=== PATIENT | female | born 1990 | race Caucasian/White ===

== ENCOUNTER 2018-09-08 22:59 | Emergency (ER) | payer BC, OTHER ==
[~2018-09-08] VITALS: Wt 55.2 kg
[~2018-09-08 22:59] MED LIST: PREN1TAB49
--- NOTE | 2018-09-09 00:59 | ERD ---
ER Documentation Chief Complaint Chief Complaint BACK PAIN, 12 WEEKS PG, DX DEMISE HPI 22-year-old G3, P2 female and her 12-week of presents with complaint of abdominal cramping. States that she was at [facility] on Thursday and was diagnosed with demise. States that she has not passed the fetus yet. States there has been some mild spotting but she is not going through any pads. States that she has an OB by the name of Dr.Michael Ann. Denies any lightheadedness, palpitations, fevers, chills. ROS All systems reviewed and are negative except as per history of present illness. Medications Home Meds Active Scripts Ibuprofen* (Motrin*) 600 Mg Tab, 600 MG PO Q6 for pain, #30 TAB Prov:ISIAH GREENE 09/09/18 Hydrocodone/Acetaminophen (Electra 5-325 Tablet) 1 Each Tablet, 1 TAB PO Q6H PRN for PAIN, #15 TAB Prov:ISIAH GREENE 09/09/18 Reported Medications Vits W-Ca,Fe,Fa(<1MG) () 1 Tab Tablet 01/29/10 Allergies Allergies: Coded Allergies: No Known Allergies (Verified Allergy, Mild, 01/29/10) PMhx/Soc Medical and Surgical Hx: pt denies Medical Hx, pt denies Surgical Hx History of Surgery: No Anesthesia Reaction: No Hx Neurological Disorder: No Hx Respiratory Disorders: No Hx Cardiac Disorders: No Hx Psychiatric Problems: No Hx Miscellaneous Medical Probl: No Hx Alcohol Use: No Hx Substance Use: No Hx Tobacco Use: No Smoking Status: Never smoker FmHx Family History: No diabetes, No coronary disease, No other Physical Exam Vitals Vital Signs Date Temp Pulse Resp B/P (MAP) Pulse Ox O2 O2 Flow FiO2 Time Delivery Rate 09/08/18 97.6 82 18 115/63 99 23:02 (80) Physical Exam Const: No acute distress Head: Atraumatic Eyes: Normal Conjunctiva ENT: Normal External Ears, Nose and Mouth. Neck: Full range of motion. No meningismus. Resp: Clear to auscultation bilaterally Cardio: Regular rate and rhythm, no murmurs Abd: Soft, non tender, non distended. Normal bowel sounds Skin: No petechiae or rashes Back: No midline or flank tenderness Ext: No cyanosis, or edema Neur: Awake and alert Psych: Normal Mood and Affect Results 24 hrs Laboratory Tests Test 09/09/18 02:39 Prothrombin Time 13.3 Sec Prothrombin Time Ratio 1.0 INR International Normalized Ratio 1.00 Activated Partial Thromboplast Time 29.9 Sec Fibrinogen 285.0 mg/dl Current Medications Medications Dose Sig/[place] Start Time Status Last (Trade) Ordered Route PRN Stop Time Admin Dose Reason Admin Ketorolac 60 mg ONCE STAT 09/09/18 DC 09/09/18 Tromethamine IM 02:13 09/09/18 02:42 (Toradol) 02:15 1 tab ONCE ONCE 09/09/18 DC 09/09/18 Acetaminophen PO 02:30 09/09/18 02:41 / 02:31 Hydrocodone Bitart (Electra ()) Procedures/[facility] DIAGNOSTIC IMAGING REPORT Patient: RADHA SALGUERO : 1990 Age: 27 Sex: F MR #: [id number] DOS: 09/09/18 0052 Ordering MD: ISIAH GREENE Location: [facility] Room/Bed: PROCEDURE: US OB. CLINICAL INDICATION: Confirm demise, cramping and spotting. Patient reports being seen at [facility] 3 days ago and being told of demise. Clinical estimated gestational age 13 weeks 1 day. TECHNIQUE: Transabdominal views of the pelvis are available for review. COMPARISON: No prior studies are available for comparison. FINDINGS: [place]-rump length: 2.38 cm heart rate: No embryonic heart activity seen. Ultrasound estimated gestational age: 9 weeks 1 day Neither ovary seen. No adnexal mass or free intrapelvic fluid is seen IMPRESSION: Failed intrauterine / demise. RPTAT: HJES .Zeus Malin MD, MD Date Time Electronically viewed and signed by .Zeus Malin MD, MD on 09/09/2018 02:04 .S/ CC: ISIAH GREENE [phone] MDM: Ultrasound performed confirmed demise. I spoke to Dr. Segura, the ASSISTANT STORE MANAGER TRAINEE contract administration manager, and she stated that as long as patient coagulation studies and fibrinogen come back within normal limits she can follow-up with her ASSISTANT STORE MANAGER TRAINEE tomorrow. I explained this to the patient and patient agreed to follow-up with her ASSISTANT STORE MANAGER TRAINEE tomorrow. I have low suspicion for ectopic baseson results of US, hemodynamic stability, physical exam and patient history. I have low suspicion for septic , pyelonephritis, placenta abrupta, appendicitis, cholecystitis, bowel obstruction, ovarian torsion, symptomatic anema, PID, surgical abdomen, or other life threatening conditions based on patient history, physical exam, and lab/imaging results. Patient discharged with strict ER precautions. Patient advised to follow up with PMD and product manager e commerce. All questions answered at discharge. Departure Diagnosis: Primary Impression: demise Condition: Stable ISIAH GREENE September 09, 2018 00:59
[2018-09-09] MEDS ORDERED: KETOROLAC 60 MG INJ IM STA (02:13)
[2018-09-09] MEDS ORDERED: HYDROCODONE/APAP (5/325) TAB PO ONE (02:30)
[2018-09-09] MEDS ORDERED: HYDR-4011 PO (03:24)
[2018-09-09] MEDS ORDERED: IBUP-1542 PO (03:24)
[2018-09-09 03:35] VITALS: BP 91/50; PULSE 64; RESP 18
== END 2018-09-09 03:36 | disposition home or self-care (01) ==
LOC: FTE 22:59
DX: O02.1 Missed abortion (principal)
CPT/HCPCS: 36415; 76801; 85384; 85610; 85730; 86900; 86901; 96372; J1885; Z7502; Z7610

== ENCOUNTER 2018-09-14 15:38 | Day surgery (SDC) | payer OTHER ==
[~2018-09-14] VITALS: Ht 162.6 cm; Wt 54.0 kg
[2018-09-14] VITALS (10 sets, daily range): BP systolic 112–131; BP diastolic 70–81; PULSE 68–80; RESP 11–16; Ht 162.6 cm; Wt 54.0 kg
--- NOTE | 2018-09-14 15:23 | PREOPHP ---
DATE OF ADMISSION: 09/14/2018 HISTORY OF PRESENT ILLNESS: Ms. Charlene Butler is a 27-year-old 4, para 2, LMP of 019, diagnosed with missed approximately 9 weeks gestational age, desires surgical managemen t. PAST MEDICAL HISTORY: None. MEDICATIONS: None. PAST SURGICAL HISTORY: None. OBSTETRICAL HISTORY: x2 vaginal delivery, x1 missed AB. GYNECOLOGIC HISTORY: 12, regular 3 to 4 days. Denies any sexually transmitted infections. Sexually active with 1 partner. SOCIAL HISTORY: Denies any smoking, drugs or alcohol. FAMILY HISTORY: None. REVIEW OF SYSTEMS: All within normal except history of present illness. PHYSICAL EXAMINATION: HEENT: Within normal. LUNGS: CTA bilateral. CARDIOVASCULAR: S1, S2. Regular rate, rhythm. ABDOMEN: Soft, nontender, negative distention. EXTREMITIES: Negative edema. No calf tenderness. VAGINAL: Normal external genitalia. Cervix negative, CMT negative lesions. Adnexa: Negative mass, nontender bilateral. Fundus is 8-week size uterus. ASSESSMENT: 1. Missed approximately 9 weeks' gestational age. 2. Rh positive. 3. Desires surgical management. PLAN: Consent for suction D and C. Risks, benefits and alternatives were explained. All questions were answered. Dictated By: DARIUS ESCALERA/ALFONSO Conf#: [id number] DID#: [id number]
[~2018-09-14 15:38] MED LIST changes: +HYDR-4011 PO; +IBUP-1542 PO
[2018-09-14] MEDS ORDERED: SEVOFLURANE 15 MIN ONE (17:00)
--- NOTE | 2018-09-14 17:24 | PREAC ---
Date/Time of Note Date/Time of Note DATE: 09/14/18 TIME: 17:22 Anesthesia Eval and Record Evaluation Time Pre-Procedure Interview DATE: 09/14/18 TIME: 17:22 Age 27 Sex female NPO: 8 hrs Preoperative diagnosis missed Planned procedure D&C Past Medical History Past Medical History: None Surgery & Anesthesia Issues No known issue Meds Anticoagulation: No Beta Fiona within 24 hr: No Reason Beta Fiona not given: Pt. not on B-Fiona Active Scripts Ibuprofen* (Motrin*) 600 Mg Tab, 600 MG PO Q6 for pain, #30 TAB Prov:ISIAH GREENE 09/09/18 Hydrocodone/Acetaminophen ([place] 5-325 Tablet) 1 Each Tablet, 1 TAB PO Q6H PRN for PAIN, #15 TAB Prov:ISIAH GREENE 09/09/18 Reported Medications Vits W-Ca,Fe,Fa(<1MG) () 1 Tab Tablet 01/29/10 Meds reviewed: Yes Allergies Coded Allergies: No Known Allergies (Verified Allergy, Mild, 01/29/10) Allergies Reviewed: Yes Labs/Studies Labs Reviewed: Reviewed by anesthesiologist Result Diagram: 09/14/18 1608 Laboratory Tests 09/14/18 16:08 Blood Bank Test 09/14/18 16:08 Antibody Screen NEGATIVE Blood Type B POSITIVE test: Positive Studies: ECG Pre-procedure Exam Last vitals Vital Signs Date Temp Pulse Resp B/P (MAP) Pulse Ox O2 O2 Flow FiO2 Time Delivery Rate 09/14/18 97.4 74 16 126/75 99 Room Air 16:25 (92) Airway: Adequate mouth opening, Adequate thyromental dist Mallampati: Mallampati II Teeth: Normal Lung: Normal Heart: Normal ASA Physical Status ASA physical status: 2 Emergency: None Planned Anesthetic General/MAC: LMA Planned Pain Management Parenteral pain med Pre-operative Attestations Prior to commencing anesthesia and surgery, the patient was re-evaluated, there was verification of: *The patient's identity *The results of appropriate recent lab work and preoperative vital signs *The above evaluation not changing prior to induction *Anesthetic plan, risk benefits, alternative and complications discussed with patient/family; questions answered; patient/family understands, accepts and wishes to proceed. GUNNAR CHAPMAN MD September 14, 2018 17:24
[2018-09-14] MEDS ORDERED: FENTAnyl 50 MCG/ML VIAL ONE (17:26)
[2018-09-14] MEDS ORDERED: MIDAZOLAM 1 MG/ML 2 ML INJ ONE (17:26)
[2018-09-14] MEDS ORDERED: METHYLERGONOVINE 0.2 MG INJ ONE (17:40)
[2018-09-14] MEDS ORDERED: ONDANSETRON 4 MG INJ ONE (17:47)
[2018-09-14] MEDS ORDERED: PROPOFOL 20 ML ONE (17:48)
[2018-09-14] MEDS ORDERED: CEFAZOLIN 1 GM INJ ONE (17:48)
[2018-09-14] MEDS ORDERED: LIDOCAINE 2% (SDV) 5 ML INJ ONE (17:48)
--- NOTE | 2018-09-14 18:04 | PAC ---
Date/Time of Note Date/Time of Note DATE: 09/14/18 TIME: 18:03 Post-Anesthesia Notes Post-Anesthesia Note Last documented vital signs Vital Signs Date Temp Pulse Resp B/P (MAP) Pulse Ox O2 O2 Flow FiO2 Time Delivery Rate 09/14/18 97.4 74 16 126/75 99 Room Air 16:25 (92) Activity: WNL Respiratory function: WNL Cardiovascular function: WNL Mental status: Baseline Pain reasonably controlled: Yes Hydration appropriate: Yes Nausea/Vomiting absent: Yes Comments BP:105/56, P:77, Spo2:100%, T:98,8 GUNNAR CHAPMAN MD September 14, 2018 18:04
--- NOTE | 2018-09-14 18:06 | OPPN ---
Date/Time of Note Date/Time of Note DATE: 09/14/18 TIME: 18:03 Operative Report Planned Procedure Procedure date September 14, 2018 Procedure(s) Suction dilation and curettage Performed by see signature line Hr Intern: DARIUS LYNN MD 2nd Hr Intern none Anesthesiologist: GUNNAR CHAPMAN MD Pre-procedure diagnosis missed 9 wks ga, Rh Positive [id number] Anesthesia Type: [id number] general Post-Procedure Post-procedure diagnosis same Findings 10 wks size uterus with products of conception . Estimated Blood Loss: 0 - 10 mls (50) Specimen(s) production of conception Grafts/Implant(s) none Complication(s) none DARIUS LYNN MD September 14, 2018 18:06
--- NOTE | 2018-09-14 18:12 | PD.PPDC ---
SR. SOCIAL MEDIA & MOBILE MANAGER Discharge Instruction Condition [id number] Patient Condition: Noirx4f Fair Diet Sfikv6Rc Diet: Qvgpq9t Resume Regular Diet Activity/Restrictions [id number] Activity: Zddfu0t Normal Activity May Shower Ymthx1Hn Restrictions: Rfhtc2e No Exercising No Lifting No Driving No Sexual Activity Nothing in the Vagina No [place] No Tampons, douche Follow-up Follow-up with Physician: 2, Week/Weeks Return to clinic for Ijisi9Av SUGAR BOILER Instructions: Bukjq1h Fever greater than 101 Chills Worsening abdominal pain Excessive Vaginal Bleeding More than 2 pads per hour Unable to tolerate diet [id number] OB Instructions: Uqvbe0z Breast Tenderness Depression Blurried Vision Headache DARIUS LYNN MD September 14, 2018 18:12
[2018-09-14] MEDS ORDERED: METOCLOPRAMIDE 10 MG INJ IV PRN (18:30)
[2018-09-14] MEDS ORDERED: HYDROmorphONE 1 MG/5 ML IV SYRINGE IV PRN ×2 (18:30)
[2018-09-14] MEDS ORDERED: FENTAnyl 50 MCG/ML VIAL IV PRN (18:30)
[2018-09-14] MEDS ORDERED: ONDANSETRON 4 MG INJ IV PRN (18:30)
[2018-09-14] MEDS ORDERED: MEPERIDINE 25 MG INJ IV PRN (18:30)
[2018-09-14] MEDS ORDERED: DIPHENHYDRAMINE 50 MG INJ IV PRN (18:30)
--- NOTE | 2018-09-15 16:30 | OPR ---
DATE OF OPERATION: 09/14/2018 PRIMARY DIAGNOSIS: 8-week intrauterine with missed , Rh positive. POSTOPERATIVE DIAGNOSIS: 8-week intrauterine with missed , Rh positive. OPERATION PERFORMED: Suction dilation and curettage. SURGEON: Darius Harrington MD STEAM CONDITIONER OPERATOR: None. ANESTHESIA: General. COMPLICATIONS: None. ESTIMATED BLOOD LOSS: 50 mL. FINDINGS: A 10-week size anteverted uterus with moderate amounts of products of conception. PATHOLOGY: Products of conception. DESCRIPTION OF PROCEDURE: After explaining the risks, benefits and alternatives, the patient had con sent signed in chart, the patient was taken to the operating room where general anesthesia was obtain ed without difficulty. The patient was then examined under anesthesia and found to have a 10 week si ze uterus with normal adnexa. She was then placed in a dorsal lithotomy position and prepared and dr aped in normal sterile fashion. A heavy weighted speculum was then placed in the patient's vagina an d the anterior lip of the cervix was grasped with a single tooth tenaculum. A 10 mm suction curet wa s advanced gently to the uterine fundus. The suction device was then activated and the curet rotated to clear the uterus of all products of conception. A sharp curettage was then performed until a gri tty texture was noted. The suction curet was reintroduced to clear the uterus of all remaining produ cts of conception. There was minimal bleeding noted and the tenaculum removed with good hemostasis. The patient was taken to the PACU in stable condition. The patient was given antibiotics prophylact ically. The patient will follow up in the clinic in 2 weeks for postop check. Dictated By: DARIUS ESCALERA/ALFONSO Conf#: [id number] DID#: [id number]
== END 2018-09-14 19:41 | disposition home or self-care (01) ==
LOC: SDS 15:38
PROVIDERS: ATTEND Obstetrics & Gynecology
DX: O02.1 Missed abortion (principal); Z67.90 Unspecified blood type, Rh positive
CPT/HCPCS: 59820; 85025; 86850; 86900; 86901; 88305; J0690; J2210; J2250; J2405; J3010; Z7512; Z7610